=== PATIENT | female | born 1945 | race Caucasian/White ===

== ENCOUNTER 2020-08-11 06:54 | Emergency (ER) | payer MEDICARE, SELFPAY ==
[2020-08-11] VITALS (8 sets, daily range): BP systolic 125–152; BP diastolic 59–76; PULSE 102–142; RESP 18–22; TEMP 36.4–36.9; O2SAT 96–100; BMI 18.1
--- NOTE | 2020-08-11 07:07 | XRR_ITS ---
PROCEDURE INFORMATION: Exam: XR Left Shoulder Exam date and time: 08/11/2020 7:35 AM Age: 75 years old Clinical indication: Injury or trauma; Fall; Blunt trauma (contusions or hematomas); Shoulder; Left; Additional info: Shoulder pain S/P fall TECHNIQUE: Imaging protocol: XR Left shoulder. Views: 2 or more views. COMPARISON: No relevant prior studies available. FINDINGS: Bones/joints: There is a comminuted impacted transverse fracture through the left humeral neck. There also appears to be tuberosity avulsion the humeral head is not dislocated. The scapula and clavicle are unremarkable. Soft tissues: Normal. XR/XR shoulder LT min 2V* [id number] IMPRESSION: Comminuted impacted fracture of the left humeral neck.
--- NOTE | 2020-08-11 07:07 | XRR_ITS ---
PROCEDURE INFORMATION: Exam: XR Chest, 1 View Exam date and time: 08/11/2020 7:35 AM Age: 75 years old Clinical indication: Injury or trauma; Fall; Blunt trauma (contusions or hematomas); Additional info: Syncope TECHNIQUE: Imaging protocol: XR of the chest Views: 1 view. COMPARISON: No relevant prior studies available. FINDINGS: Lungs: Unremarkable. No consolidation. Pleural space: Unremarkable. No pleural effusion. No pneumothorax. Heart/Mediastinum: Unremarkable. No cardiomegaly. Bones/joints: There is a comminuted transverse fracture through the left humeral neck. XR/XR chest 1V portable [id number] IMPRESSION: 1. Left humeral neck fracture. 2. No significant cardiopulmonary abnormality.
--- NOTE | 2020-08-11 07:07 | XRR_ITS ---
PROCEDURE INFORMATION: Exam: XR Left Wrist Exam date and time: 08/11/2020 7:35 AM Age: 75 years old Clinical indication: Injury or trauma; Fall; Blunt trauma (contusions or hematomas); Wrist; Left; Additional info: Left wrist pain S/P fall TECHNIQUE: Imaging protocol: XR Left wrist. Views: 3 or more views. COMPARISON: No relevant prior studies available. FINDINGS: Bones/joints: There is a comminuted transverse fracture through the distal metaphysis of the radius the distal fragment is displaced and tilted dorsally. A nondisplaced fractures present in the ulnar there for styloid. Soft tissues: Normal. XR/XR wrist LT min 3V* [id number] IMPRESSION: 1. Comminuted impacted and angulated fracture of the distal radius. 2. Nondisplaced fracture of the ulnar styloid.
--- NOTE | 2020-08-11 07:08 | ECG_ITS ---
[facility] Test Date: 2020-08-11 Pat Name: Simran Thomas Department: Room: Gender: Female Radiologic Technologist: : 1945 Requested By: Yael Sears Order Number: [id number] Reading MD: MARIA GUADALUPE CARROLL Measurements Intervals [place] Rate: 107 P: 42 KS: 145 QRS: 37 QRSD: 73 T: 51 QT: 313 QTc: 419 Interpretive Statements SINUS TACHYCARDIA NONSPECIFIC T-WAVE ABNORMALITY ABNORMAL RHYTHM ECG No previous ECG available for comparison Electronically Signed On 08-11-2020 17:26:57 ELECTRICAL TECHNICIAN by MARIA GUADALUPE CARROLL [id number]
--- NOTE | 2020-08-11 07:09 | CTR_ITS ---
PROCEDURE INFORMATION: Exam: CT Head Without Contrast Exam date and time: 08/11/2020 7:34 AM Age: 75 years old Clinical indication: Injury or trauma; Fall; Blunt trauma (contusions or hematomas); Consciousness not specified; Injury date: This morning; Additional info: Weakness, fall TECHNIQUE: Imaging protocol: Computed tomography of the head without contrast. Radiation optimization: All CT scans at this facility use at least one of these dose optimization techniques: automated exposure control; mA and/or kV adjustment per patient size (includes targeted exams where dose is matched to clinical indication); or iterative reconstruction. COMPARISON: No relevant prior studies available. RADIATION DOSE METRICS: Total DLP (mGy-cm): 1395.28 FINDINGS: Brain: There is moderate generalized chronic atrophy. There is no intracranial hemorrhage, edema or other acute abnormality in the brain. Cerebral ventricles: Mild ventricular prominence related to chronic atrophy. Bones/joints: Unremarkable. No acute fracture. Paranasal sinuses: Visualized sinuses are unremarkable. No fluid levels. Mastoid air cells: Visualized mastoid air cells are well aerated. Soft tissues: Unremarkable. CT/CT head wo con* [id number] IMPRESSION: Moderate chronic atrophy. No acute intracranial abnormality. Radiation Dose CTDIVOL = (mGy): DLP = 1395.28 (mGy-cm)
--- NOTE | 2020-08-11 07:21 | ED_ITS ---
HPI - Trauma General: Chief Complaint: Trauma Stated Complaint: LEFT WRIST AND SHOULDER PAIN S/P FALL Time Seen by Provider: 08/11/20 07:03 Source: patient and EMS Mode of arrival: EMS Limitations: no limitations History of Present Illness: HPI narrative: 75 year old female presents to the ED due to fall she sustained this am at home, reports got up to go to the bathroom, states her legs were weak, sustaining a fall. She reports her tried to get her up, she was too weak to walk. Her spouse states she did not lose consciousness, reports did not hit her head, reports dizziness after the fall. Reports compression fracture of the lumbar spine, reports left shoulder pain, left wrist pain, spouse reports she hit the hardwood floor. MD complaint: fall, injury and pain Onset (ago): minute(s) (45) Loss of Consciousness: no Location: face Location - Extremities: Left: shoulder and wrist Severity: moderate Severity scale (1-10): 7 Context: fall Associated symptoms: Reports dizziness and weakness (BLE which led to fall); Denies abdominal pain, chest pain, chills, dental pain, diaphoresis, fever(s), headache(s), nausea or vomiting Review of Systems General: Reports: 10 or more systems reviewed and unremarkable except in HPI and below Const: Denies: fever(s), chills or diaphoresis Eyes: Denies: blurry vision or eye redness ENMT: Reports: swelling of lips/tongue (laceration to the lower lip and chin); Denies: throat pain, enlarged tonsils, dental pain or disequilibrium Card: Reports: irregular heart rhythm (per EMS, question new onset Atrial Fib); Denies: chest pain or palpitations Resp: Reports: dyspnea (chronic with ambulation due to kyphosis posture ); Denies: productive cough, non-productive cough, wheezing or chest congestion GI: Denies: abdominal pain, nausea, vomiting, heartburn or early satiety : Denies: difficulty voiding or dysuria Musc: Reports: back pain (lumbar spine, chronic), extremity pain (left shoulder, left wirst), limited range of motion (left shoulder, left wirst) and muscle weakness (BLE); Denies: neck pain Skin/Breast: Denies: rash, pruritus, changing lesions or changes in skin color Neuro: Reports: weakness in extremities (BLE) and dizziness; Denies: headache(s) or sensory changes Psych: Denies: anxiety, depression, difficulty concentrating, visual hallucinations or auditory hallucinations Tani/Lymph: Denies: easy bruising PFSH ED PFSH: Social History (Updated 08/11/20 @ 07:48 by CATRACHITA Kaba) Household members: spouse Housing: House Physical Exam Const: COMMON NORMALS: no acute distress, patient oriented x3 and alert EXAM LIMITATIONS: no altered mental status GENERAL APPEARANCE: cooperative, well kempt, frail appearing and other (in pain) NUTRITIONAL APPEARANCE: thin ORIENTATION/CONSCIOUSNESS: Yes awake, Yes oriented to person, Yes oriented to place and Yes oriented to time HENMT: COMMON NORMALS: normocephalic, atraumatic, EAC's normal, TM's normal bilaterally, Normal external nose present, Normal nasal mucous membranes and turbinates present, moist oral mucous membranes and oropharynx normal HEAD & SCALP: normocephalic and atraumatic; no Acrocyanosis present and no laceration FACE & SINUS: sinuses nontender, erythema (contusion, left lower chin) and laceration (left lower chin 1 cm); no Acrocyanosis present FACE & SINUS IMAGES: 1. lip laceration, 0.5 cm, flap, negative for through and through NOSE: Normal external nose present, Normal nasal mucous membranes and turbinates present and No nasal discharge present EXTERNAL AUDITORY CANAL: EAC's normal TYMPANIC MEMBRANE: TM's normal bilaterally TEETH & GINGIVA: Yes other (den aftab contusion, central lower, negative dental avulsion/loosening ) THROAT: uvula midline Eye: COMMON NORMALS: Equal, round and reactive pupils present and EOMs intact bilaterally GENERAL EYE: appearance normal, both eyes and all related structures SCLERA: sclerae normal PUPIL: Yes Equal, round and reactive pupils present, Yes pupil size - right Right pupil size (mm): 4 and Yes pupil size - left Left pupil size (mm): 4 Neck/C-Spine: COMMON NORMALS: full ROM and no lymphadenopathy GENERAL: Yes normal visual inspection and Yes trachea midline CERVICAL SPINE: Yes cervical ROM normal, No pain with cervical ROM, No Cervical spine tenderness, No Paracervical muscle tenderness and Yes Trapezius muscle tenderness left Lymph: LYMPHATIC: no lymphadenopathy noted Chest: COMMONS NORMALS: normal inspection of the chest and normal palpation of entire chest wall CHEST: No localized rib tenderness with anteroposterior compression Resp: COMMON NORMALS: normal respiratory effort, No retractions, No use of accessory muscles and clear to auscultation bilaterally EFFORT & INSPECTION: Yes able to speak in complete sentences, No decreased respiratory effort and No paradoxical thoraco-abdominal movements AUSCULTATION: clear to auscultation bilaterally and diminished lung sounds bilateral Cardio: COMMON NORMALS: regular rate, regular rhythm, S1 normal heart sound present, S2 normal heart sound present and Peripheral pulses 2+ throughout RATE: regular rate and tachycardic RHYTHM: regular rhythm HEART SOUNDS: S1 normal heart sound present and S2 normal heart sound present PERIPHERAL PULSES: Peripheral pulses 2+ throughout GI: COMMON NORMALS: Normal to inspection, nondistended, normoactive bowel sounds present, Soft to palpation and non-tender INSPECTION: Yes normal to inspection, No Abdominal wall edema, No abdominal distension and No central obesity AUSCULTATION: Yes normoactive bowel sounds PALPATION: Yes Soft to palpation : COMMON NORMALS: Yes no CVA tenderness BLADDER/KIDNEY EXAM: Yes no CVA tenderness Back/Pelvis: COMMON NORMALS: no CVA tenderness and thoracic and lumbar spine normal to inspection THORACIC SPINE/UPPER BACK: Yes normal to inspection LUMBAR SPINE/LOWER BACK: Yes normal to inspection and Yes lumbar spinal tenderness Lumbar spinal tenderness location: L3, L4 and L5 SACROILIAC JOIN TS: Yes SI joints normal Extremity: COMMON NORMALS: normal to inspection and capillary refill normal GENERAL: Yes normal exam except as noted LEFT UPPER EXTREMITY: Yes shoulder joint Left shoulder joint: Yes inspection (edema inferior, anterior), Yes palpation (pain with palpation), Yes ROM (limited due to pain) and Yes neurovascular exam (distally intact) and Yes wrist Left wrist: Yes inspection (obvious deformity), Yes palpation (pain with palpation), Yes ROM (limited due to pain) and Yes neurovascular exam (distally intact, movement of all digits distally intact) Neuro: COMMON NORMALS: patient oriented x3 and no focal motor deficits SENSORIUM/ORIENTATION: Yes alert, Yes oriented to person, Yes oriented to place and Yes oriented to time Psych: COMMON NORMALS: mental status grossly normal, Normal thought process present, cooperative, normal affect, speech normal and activity/motor behavior normal APPEARANCE: Yes grossly normal and Yes well kempt ATTITUDE: Yes calm ACTIVITY/MOTOR BEHAVIOR: Yes appropriate eye contact SPEECH: Yes normal speech THOUGHT PROCESS: Normal thought process present MEMORY/COGNITION: Yes memory grossly intact INSIGHT: Good insight present (Psych) JUDGEMENT: Good judgement present (Psych) Skin: COMMON NORMALS: no rashes or lesions noted and turgor normal GENERAL SKIN EXAM: no rashes or lesions noted and turgor normal Procedures Laceration Laceration 1: Site: face (left central chin) Side (If applicable): left Size (cm): 1 Description: stellate and other (contused) Depth: simple, single layer Local Anesthetic: lidocaine 1% and with epi Amount of anesthesia used (mL): 2 Pre-repair: wound explored, irrigated extensively, deep structures intact, extensive debridement and wound margins revised Skin layer closed with: nylon Size (cm): 5-0 Number of sutures: 2 Technique: simple, interrupted Laceration 2: Site: lip Side (If applicable): left Size (cm): 0.5 Description: stellate, irregular, involves jessica border and other (contused) Depth: simple, single layer Local Anesthetic: lidocaine 1% and with epi Amount of anesthesia used (mL): 0.5 Pre-repair: wound explored, irrigated extensively, deep structures intact and extensive debridement Skin layer closed with: nylon Size (cm): 5-0 Number of sutures: 1 Technique: simple, interrupted Orthopedic Splinting/Casting Injury #1: Side: left Upper Extremity Injury Location: forearm and wrist Upper Extremity Immobilizer: sugar tong splint and Calos wrap MDM - Trauma Lab Data: Labs: Lab Results 08/11/20 08/11/20 08/11/20 Range/Units 07:00 07:00 07:00 WBC 13.9 H (4.0-10.0) 10^3/ uL RBC 3.47 L (4.1-5.3) 10^6/u L Hgb 10.5 L (11.5-15.3) g/dL Hct 32.8 L (37.0-47.0) % MCV 94.5 (81-99) fL MCH 30.3 (28.0-34.0) pg MCHC 32.0 (30.0-36.0) g/dL RDW 13.3 (12.1-15.1) % Plt Count 200 (130-400) 10^3/c mm MPV 10.3 (7.4-10.4) fL Neut % (Auto) 81.9 % Lymph % (Auto) 11.6 % Mcclain % (Auto) 5.8 % Eos % (Auto) 0.1 % Baso % (Auto) 0.2 % Neut # (Auto) 11.35 H (1.8-7.7) 10^3/u L Lymph # (Auto) 1.6 (0.8-4.8) 10^3/u L Mcclain # (Auto) 0.8 (0.2-0.9) 10^3/u L Eos # (Auto) 0.0 (0.0-0.8) 10^3/u L Baso # (Auto) 0.0 (0.0-0.1) 10^3/u L Nucleated RBC % (a uto) 0 % Nucleated RBCs # 0.0 /100WBC Sodium 137 (136-145) mmol/L Potassium 3.7 (3.5-5.1) mmol/L Chloride 100 (98-107) mmol/L Carbon Dioxide 25 (22-29) mmol/L Anion Gap 15.7 (5-19) BUN 13 (8-23) mg/dL Creatinine 0.8 (0.5-0.9) mg/dL GFR Calculation Not Reportable Glucose 148 H (65-115) mg/dL Calculated Osmolal ity 287 (285-295) mOsm/k g Calcium 9.3 (8.5-10.5) mg/dL Total Bilirubin 0.4 (0.15-1.2) mg/dL AST 24 (0-32) U/L ALT 10 (0-33) U/L Alkaline Phosphata se 89 (35-105) IU/L Troponin T Baselin e 8 (0-10) ng/L Troponin T 120 Min [place] (0-10) ng/L Delta Troponin T (0-10) ABS# Total Protein 6.9 (6.6-8.7) g/dL Albumin 4.6 (3.5-5.2) g/dL Globulin 2.3 (1.3-4.6) g/dL Urine Color (Yellow) Urine Appearance (CLEAR) Urine pH (5-7) Ur Specific Gravit y (1.005-1.030) Urine Protein (Negative) Urine Glucose (UA) (Normal) Urine Ketones (Negative) Urine Blood (Negative) Urine Nitrate (Negative) Urine Bilirubin (Negative) Urine Urobilinogen (Negative) mg/dL Ur Leukocyte Darya ase (Negative) Urine RBC (0-2) /hpf Urine WBC (0-5) /hpf Ur Squamous Epith Cells (0-5) /hpf Amorphous Sediment Urine Bacteria (NONE) /hpf Urine Mucus /hpf 08/11/20 08/11/20 Range/Units 09:12 09:22 WBC (4.0-10.0) 10^3/ uL RBC (4.1-5.3) 10^6/u L Hgb (11.5-15.3) g/dL Hct (37.0-47.0) % MCV (81-99) fL MCH (28.0-34.0) pg MCHC (30.0-36.0) g/dL RDW (12.1-15.1) % Plt Count (130-400) 10^3/c mm MPV (7.4-10.4) fL Neut % (Auto) % Lymph % (Auto) % Mcclain % (Auto) % Eos % (Auto) % Baso % (Auto) % Neut # (Auto) (1.8-7.7) 10^3/u L Lymph # (Auto) (0.8-4.8) 10^3/u L Mcclain # (Auto) (0.2-0.9) 10^3/u L Eos # (Auto) (0.0-0.8) 10^3/u L Baso # (Auto) (0.0-0.1) 10^3/u L Nucleated RBC % (a uto) % Nucleated RBCs # /100WBC Sodium (136-145) mmol/L Potassium (3.5-5.1) mmol/L Chloride (98-107) mmol/L Carbon Dioxide (22-29) mmol/L Anion Gap (5-19) BUN (8-23) mg/dL Creatinine (0.5-0.9) mg/dL GFR Calculation Glucose (65-115) mg/dL Calculated Osmolal ity (285-295) mOsm/k g Calcium (8.5-10.5) mg/dL Total Bilirubin (0.15-1.2) mg/dL AST (0-32) U/L ALT (0-33) U/L Alkaline Phosphata se (35-105) IU/L Troponin T Baselin e (0-10) ng/L Troponin T 120 Min [place] 9.44 (0-10) ng/L Delta Troponin T 1.44 (0-10) ABS# Total Protein (6.6-8.7) g/dL Albumin (3.5-5.2) g/dL Globulin (1.3-4.6) g/dL Urine Color Straw (Yellow) Urine Appearance Clear (CLEAR) Urine pH 5 (5-7) Ur Specific Gravit y 1.025 (1.005-1.030) Urine Protein Neg (Negative) Urine Glucose (UA) Norm (Normal) Urine Ketones 1+ H (Negative) Urine Blood 2+ H (Negative) Urine Nitrate Negative (Negative) Urine Bilirubin Neg (Negative) Urine Urobilinogen Norm (Negative) mg/dL Ur Leukocyte Darya ase Negative (Negative) Urine RBC 0-4 H (0-2) /hpf Urine WBC 0-4 H (0-5) /hpf Ur Squamous Epith Cells Rare (0-5) /hpf Amorphous Sediment Not Reportable Urine Bacteria Trace (NONE) /hpf Urine Mucus 1+ /hpf Imaging Data^: Other CT: Radiologist's impression: [place] [address] CT Scan Report Signed Patient: Simran Thomas #: [id number] : 5Acct#:[id number] Age/Sex: 75 / FADM Date: 08/11/20 Loc: [facility]/Bed: Attending Dr: Ordering Provider/Ordering MD: Yael Dexter Date of Service: 08/11/20 Procedure(s): CT lumbar spine wo con* [id number] Accession Number(s): [id number] Report Number: [id number] PROCEDURE INFORMATION: Exam: CT Lumbar Spine Without Contrast Exam date and time: 08/11/2020 7:34 AM Age: 75 years old Clinical indication: Injury or trauma; Fall; Blunt trauma (contusions or hematomas); Injury date: This morning; Additional info: Back pain, leg weakness TECHNIQUE: Imaging protocol: Computed tomography images of the lumbar spine without contrast. Radiation optimization: All CT scans at this facility use at least one of these dose optimization techniques: automated exposure control; mA and/or kV adjustment per patient size (includes targeted exams where dose is matched to clinical indication); or iterative reconstruction. COMPARISON: CR XR lumbar spine min 4V [id number] 02/03/2020 10:42 AM RADIATION DOSE METRICS: Total DLP (mGy-cm): 1466.39 FINDINGS: Vertebrae: There is a prominent compression fracture of T12 with marked loss of its vertebral height. There appears to be sclerotic with so shaded degenerative changes. Most likely this is an old fracture. There is narrowing of the adjacent discs with vacuum phenomenon. There is mild spinal stenosis at the upper margin of the T12 vertebral body due to mild retropulsion. There is compression fracture of the L3 vertebral body. This is old and was present on radiographs from 02/03/2020. Degenerative changes are present in the facet joints. There is no other significant spinal stenosis or disc protrusion.. Discs/Spinal canal/Neural foramina: No significant disc protrusion. No significant neural foraminal narrowing. Soft tissues: Unremarkable. CT/CT lumbar spine wo con* [id number] IMPRESSION: 1. Prominent compression fracture of T12 which appears to be old. There is mild spinal stenosis at the level of the fracture. 2. Old compression fracture of L3. 3. 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 4. No other significant spinal stenosis or neural foraminal narrowing. Radiation Dose CTDIVOL = (mGy): DLP = 1466.39 (mGy-cm) Dictated By:Babatunde Dyer Signed By:Benjy Dyer Date/Time:08/11/20 0759 DD/ 0758 CT Head: Radiologist's impression: [address] [address] [address] Scan Report Signed Patient: Simran Thomas Unit #: [id number] : 1945 Age/Sex: 75 / F ADM Date: 08/11/20 Loc: ER Room/Bed: Attending Dr: Ordering Provider/Ordering MD: Yael Dexter Date of Service: 08/11/20 Procedure(s): CT head wo con* [id number] Accession Number(s): [id number] Report Number: [id number] PROCEDURE INFORMATION: Exam: CT Head Without Contrast Exam date and time: 08/11/2020 7:34 AM Age: 75 years old Clinical indication: Injury or trauma; Fall; Blunt trauma (contusions or hematomas); Consciousness not specified; Injury date: This morning; Additional info: Weakness, fall TECHNIQUE: Imaging protocol: Computed tomography of the head without contrast. Radiation optimization: All CT scans at this facility use at least one of these dose optimization techniques: automated exposure control; mA and/or kV adjustment per patient size (includes targeted exams where dose is matched to clinical indication); or iterative reconstruction. COMPARISON: No relevant prior studies available. RADIATION DOSE METRICS: Total DLP (mGy-cm): 1395.28 FINDINGS: Brain: There is moderate generalized chronic atrophy. There is no intracranial hemorrhage, edema or other acute abnormality in the brain. Cerebral ventricles: Mild ventricular prominence related to chronic atrophy. Bones/joints: Unremarkable. No acute fracture. Paranasal sinuses: Visualized sinuses are unremarkable. No fluid levels. Mastoid air cells: Visualized mastoid air cells are well aerated. Soft tissues: Unremarkable. CT/CT head wo con* [id number] IMPRESSION: Moderate chronic atrophy. No acute intracranial abnormality. Radiation Dose CTDIVOL = (mGy): DLP = 1395.28 (mGy-cm) Dictated By: Babatunde Dyer CXR: Radiologist's impression: [address] [address] XRay Report Signed Patient: Simran Thomas Unit #: [id number] : 1945 Age/Sex: 75 / F ADM Date: 08/11/20 Loc: ER Room/Bed: Attending Dr: Ordering Provider/Ordering MD: Yael Dexter Date of Service: 08/11/20 Procedure(s): XR chest 1V portable [id number] Accession Number(s): [id number] Report Number: [id number] PROCEDURE INFORMATION: Exam: XR Chest, 1 View Exam date and time: 08/11/2020 7:35 AM Age: 75 years old Clinical indication: Injury or trauma; Fall; Blunt trauma (contusions or hematomas); Additional info: Syncope TECHNIQUE: Imaging protocol: XR of the chest Views: 1 view. COMPARISON: No relevant prior studies available. FINDINGS: Lungs: Unremarkable. No consolidation. Pleural space: Unremarkable. No pleural effusion. No pneumothorax. Heart/Mediastinum: Unremarkable. No cardiomegaly. Bones/joints: There is a comminuted transverse fracture through the left humeral neck. XR/XR chest 1V portable [id number] IMPRESSION: 1. Left humeral neck fracture. 2. No significant cardiopulmonary abnormality. Dictated By: Babatunde Dyer Signed By: Babatunde Dyer Signed Date/Time: 08/11/20822 DD/ 0 Xray Ortho: Radiologist's impression: [address] [address] XRay Report Signed Patient: Simran Thomas Unit #: [id number] : 1945 0 Age/Sex: 75 / F ADM Date: 08/11/20 Loc: ER Room/Bed: Attending Dr: Ordering Provider/Ordering MD: Yael Dexter Date of Service: 08/11/20 Procedure(s): XR wrist LT min 3V* [id number] Accession Number(s): [id number] Report Number: [id number] PROCEDURE INFORMATION: Exam: XR Left Wrist Exam date and time: 08/11/2020 7:35 AM Age: 75 years old Clinical indication: Injury or trauma; Fall; Blunt trauma (contusions or hematomas); Wrist; Left; Additional info: Left wrist pain S/P fall TECHNIQUE: Imaging protocol: XR Left wrist. Views: 3 or more views. COMPARISON: No relevant prior studies available. FINDINGS: Bones/joints: There is a comminuted transverse fracture through the distal metaphysis of the radius the distal fragment is displaced and tilted dorsally. A nondisplaced fractures present in the ulnar there for styloid. Soft tissues: Normal. XR/XR wrist LT min 3V* [id number] IMPRESSION: 1. Comminuted impacted and angulated fracture of the distal radius. 2. Nondisplaced fracture of the ulnar styloid. Dictated By: Babatunde Dyer Signed By: Babatunde Dyer Signed Date/Time: 08/11/20824 DD/ 2 Other Imaging: Radiologist's impression: [address] [place] [address] XRay Report Signed Patient: Simran Thomas Unit #: [id number] : 1945 Age/Sex: 75 / F ADM Date: 08/11/20 Loc: ER Room/Bed: Attending Dr: Ordering Provider/Ordering MD: Yael Dexter Date of Service: 08/11/20 Procedure(s): XR shoulder LT min 2V* [id number] Accession Number(s): [id number] Report Number: [id number] PROCEDURE INFORMATION: Exam: XR Left Shoulder Exam date and time: 08/11/2020 7:35 AM Age: 75 years old Clinical indication: Injury or trauma; Fall; Blunt trauma (contusions or hematomas); Shoulder; Left; Additional info: Shoulder pain S/P fall TECHNIQUE: Imaging protocol: XR Left shoulder. Views: 2 or more views. COMPARISON: No relevant prior studies available. FINDINGS: Bones/joints: There is a comminuted impacted transverse fracture through the left humeral neck. There also appears to be tuberosity avulsion the humeral head is not dislocated. The scapula and clavicle are unremarkable. Soft tissues: Normal. XR/XR shoulder LT min 2V* [id number] IMPRESSION: Comminuted impacted fracture of the left humeral neck. Dictated By: Babatunde Dyer Signed By: Babatunde Dyer Signed Date/Time: 08/11/20823 DD/ 1 EKG Data^: EKG 1: EKG interpretation date: 08/11/20 EKG interpretation time: 07:25 Other EKG Comments: Ventricular rate 107, sinus tachycardia, nonspecific T wave abnormality, Discharge Plan Discharge Patient Disposition: Home Clinical Impression: Fall against object, Tachycardia Left humeral fracture Qualifiers: Encounter type: initial encounter Humerus Location: surgical neck Fracture type: closed Fracture morphology: unspecified fracture morphology Fracture alignment: displaced Qualified Code(s): S42.212A - Unspecified displaced fracture of surgical neck of left humerus, initial encounter for closed fracture Left wrist fracture Qualifiers: Encounter type: initial encounter Fracture type: closed Qualified Code(s): S62.102A - Fracture of unspecified carpal bone, left wrist, initial encounter for closed fracture Contusion of face Qualifiers: Encounter type: initial encounter Qualified Code(s): S00.83XA - Contusion of other part of head, initial encounter Condition: Stable Prescriptions: New Toprol XL 25 mg tablet extended release 24 hr 12.5 mg PO DAILY Qty: 20 RF: 0 hydrocodone-acetaminophen 5-325 mg tablet 1 tab PO Q4H PRN (Reason: pain) Qty: 10 RF: 0 Discharge Orders: Discharge ED (Routine); Ordered 08/11/20 Ordered By: Yael Dexter Referrals: Antonio Ma DO [Primary Care Provider] - Discharge Diet: Usual diet Discharge Activity: Limit activity as instructed Patient Instructions: Fractures - Humerus, Holter Monitoring (ED), Suture Care (ED), Laceration (ED), Wrist Fracture in Adults (ED), Splint Care (ED), Mouth Care (ED) Activity Restrictions/Additional Instructions: No use of the left upper extremity Return to the emergency department if you develop numbness tingling or inability to feel the fingers of your left hand or if increased pain of the left upper extremity occurs Hydrocodone can cause nausea/constipation, make sure to eat with medication to avoid stomach upset and may need [id number] stool softener such as Colace or laxative for constipation May take [id number] Tylenol as needed for pain, do not exceed 3000 g in a 24-hour period Follow-up with orthopedic surgery, director social will assist with scheduling an appointment Sutures out in 7 days. Swish and spit with warm water several times daily, ramakrishna cially after eating to help with healing of the mouth May apply Vaseline to sutures if dryness occurs Monitor for signs and symptoms of infection such as redness, swelling or drainage, if occurs follow-up with your primary care provider Outpatient stress test and 72-hour Holter monitor has been placed, hospital will contact you with appointment time for testing. Monitor your blood pressure daily and record, follow-up with your primary care physician in 5 to 7 days due to tachycardia, also known as fast heart rate Coding Level of Care Code ED Community Liaison Officer for Chg Fwd Exam Comprehensive
[2020-08-11 07:25] LABS: Basophils % 0.2 %; Eosinophils % 0.1 %; Hematocrit 32.8 % (37.0-47.0); Hemoglobin 10.5 g/dL (11.5-15.3); Lymphocytes # 1.6 10^3/uL (0.8-4.8); Lymphocytes % 11.6 %; Mean Corpuscular Hemoglobin 30.3 pg (28.0-34.0); Mean Corpuscular Volume 94.5 fL (81-99); Mean Platelet Volume 10.3 fL (7.4-10.4); Monocytes # 0.8 10^3/uL (0.2-0.9); Monocytes % 5.8 %; Neutrophils # 11.35 10^3/uL (1.8-7.7); Neutrophils % 81.9 %; Nucleated Red Blood Cells % 0 %; Platelet Count 200 10^3/cmm (130-400); Red Blood Count 3.47 10^6/uL (4.1-5.3); Red Cell Distribution Width 13.3 % (12.1-15.1); White Blood Count 13.9 10^3/uL (4.0-10.0)
[2020-08-11 07:55] LABS: Alanine Aminotransferase 10 U/L (0-33); Albumin Level 4.6 g/dL (3.5-5.2); Alkaline Phosphatase 89 IU/L (35-105); Aspartate Amino Transferase 24 U/L (0-32); Blood Urea Nitrogen 13 mg/dL (8-23); Calcium 9.3 mg/dL (8.5-10.5); Carbon Dioxide 25 mmol/L (22-29); Chloride 100 mmol/L (98-107); Creatinine Clr Calc Pharmacy 39.1575; Globulin 2.3 g/dL (1.3-4.6); Glucose 148 mg/dL (65-115); Osmolality Calculated 287 mOsm/kg (285-295); Sodium 137 mmol/L (136-145); Total Bilirubin 0.4 mg/dL (0.15-1.2); Total Protein 6.9 g/dL (6.6-8.7)
[2020-08-11 07:58] LABS: Troponin(5th) Baseline 8 ng/L (0-10)
[2020-08-11] MEDS: sodium chloride 0.9% 500 ML 999 ML IV ×2 (07:58→11:26)
[2020-08-11 08:01] LABS: Anion Gap 15.7 (5-19)
[2020-08-11 08:02] LABS: Potassium 3.7 mmol/L (3.5-5.1)
[2020-08-11 09:25] LABS: Add Urine Microscopic? YES; Bilirubin Urine Neg (Negative); Blood Urine 2+ (Negative); Glucose Urine UA Norm (Normal); Ketones Urine 1+ (Negative); Leukocyte Esterase Urine Negative (Negative); Nitrate Urine Negative (Negative); Protein Urine Neg (Negative); Specific Gravity, Urine 1.025 (1.005-1.030); Urine Appearance Clear (CLEAR); Urine Color Straw (Yellow); Urobilinogen Urine Norm (Negative); pH Urine 5 (5-7)
[2020-08-11 10:02] LABS: Add Urine Culture? No; Bacteria Urine TRACE /hpf; Mucus Urine 1+ /hpf; RBC Urine 0-4 /hpf (0-2); Squamous Epithelial Cell Urine RARE /hpf (0-5); WBC Urine 0-4 /hpf (0-5)
[2020-08-11 10:30] LABS: Troponin 5 2HR 9.44 ng/L (0-10); Troponin 5 2HR Delta 1.44 ABS# (0-10)
[2020-08-11] MEDS: HYDROcodone-acetaminophen 5-325 mg Tablet 1 TAB PO (10:56)
[2020-08-11] MEDS: metoprolol succinate ER (24 HR) 25 mg Tablet 12.5 MG PO (11:24)
--- NOTE | 2020-08-14 10:20 | DCPLANNER ---
manager industrial had message to schedule a follow up appointment for patient with ortho. manager industrial called the ortho clinic, spoke with Carolina, gave clinic patients information. manager industrial was told that patients information would be printed and reviewed. Clinic will call patient with appointment information.
--- NOTE | 2020-08-15 11:05 | DCPLANNER ---
clinical trial manager also was asked to schedule an outpatient stress test and a 72 hour holter monitor. clinical trial manager faxed order to centralized scheduling for the stress test and to heart care for a holter monitor. Clinic and centralized scheduling will call patient with appointment information.
--- NOTE | 2020-08-15 13:26 | DCPLANNER ---
Patient has a follow up appointment scheduled for Saturday, August 15, [address] at 3:[address] Bass. Clinic will call patient with appointment information.
--- NOTE | 2020-08-17 15:19 | DCPLANNER ---
Patient had a follow up appointment scheduled for 08.15.20 at ortho - patient did attend appointment.
--- NOTE | 2020-09-04 11:26 | DCPLANNER ---
Patient had a follow up appointment scheduled for 08.29.20 with [facility] for a halter monitor - patient did attend appointment.
--- NOTE | 2020-09-07 11:22 | DCPLANNER ---
Patient had a stress test scheduled, when centralized scheduling called to schedule the stress test, patient stated that she did not want to have stress test scheduled at this time, it was cancelled.
--- NOTE | 2020-09-17 11:59 | DCPLANNER ---
marketing effectiveness manager had message to schedule a follow up appointment for patient with cardiology. marketing effectiveness manager called [facility], spoke with Svetlana, a follow up appointment is scheduled for Saturday, September 26, [address] at [address] Vazquez. marketing effectiveness manager called patient with appointment information, patient stated that she would attend appointment.
--- NOTE | 2020-09-28 14:46 | DCPLANNER ---
Patient had a follow up appointment scheduled for 09.26.20 with [facility] - patient did attend appointment.
== END 2020-08-11 11:49 | disposition home or self-care (01) ==
PROVIDERS: Emergency Provider Nurse Practitioner Family; PCP Internal Medicine
DX: S42.212A Unspecified displaced fracture of surgical neck of left humerus, initial encounter for closed fracture (principal); S00.83XA Contusion of other part of head, initial encounter; R00.0 Tachycardia, unspecified; S52.592A Other fractures of lower end of left radius, initial encounter for closed fracture; S52.615A Nondisplaced fracture of left ulna styloid process, initial encounter for closed fracture; S01.81XA Laceration without foreign body of other part of head, initial encounter; S01.511A Laceration without foreign body of lip, initial encounter; W18.30XA Fall on same level, unspecified, initial encounter
CPT/HCPCS: 12011; 12345; 70450; 71045; 72131; 73030; 73110; 80053; 81001; 84484; 85025; 93005; 96374; 99283; 99284; A4590; J0131; J7040

== ENCOUNTER 2020-08-15 16:19 | Outpatient (CLI) | payer MEDICARE, BC, SELFPAY | END 2020-08-15 16:20 | disposition home or self-care (01) | LOC: SPT 16:19 | PROVIDERS: PCP Internal Medicine; Visit Provider Orthopaedic Surgery | DX: Z46.89 Encounter for fitting and adjustment of other specified devices (principal); S62.102D Fracture of unspecified carpal bone, left wrist, subsequent encounter for fracture with routine healing; X58.XXXD Exposure to other specified factors, subsequent encounter; Z01.812 Encounter for preprocedural laboratory examination; Z20.828 Contact with and (suspected) exposure to other viral communicable diseases; Z11.59 Encounter for screening for other viral diseases | CPT/HCPCS: 87635; 97760; L3908 ==

== ENCOUNTER 2020-08-16 12:41 | Day surgery (SDC) | payer MEDICARE, BC, SELFPAY ==
[2020-08-15 17:25] VITALS: BMI 17.9
--- NOTE | 2020-08-16 | XR_ITS ---
WS: [id number] XR wrist LT 2V [id number] REASON FOR EXAM: OR PIC FINDINGS: Plate and screw fixation left distal radial fracture. Surgical appliance and bony fragments are in pr oper position and alignment. Ulnar styloid fracture. XR/XR wrist LT 2V [id number] IMPRESSION: Distal left radial fracture with internal fixation as above.
--- NOTE | 2020-08-16 | SCC_ITS ---
Procedure Done: Open reduction and internal fixation left distal radius 32.1 seconds of fluoroscopic guidance, for a cumulative dose of 0.52 mGy, was provided to Dr. Bass by the radiology department. C-arm images of the LEFT wrist were saved for the patient's permanent record. [facility]
--- NOTE | 2020-08-16 12:30 | ANES.PREANE2 ---
Pre-Anesthetic Assessment Pre-Anesthetic Assessment: Height/Weight: Height 1.5 m Weight 40.37 kg Preop Diagnosis: Radial fracture Proposed Procedure: Operation Date: 08/16/20 14:00 Proposed Procedures p ORIF Distal Radius 14743 S52.502A(Left) - Shane Bass MD Familial anesthetic complications: None Was Beta Cam taken within 24 hours: Yes Last intake: NPO > 8 hrs Social: Social History: No alcohol and No tobacco Exam: Pre-Anes Outpt Exam: alert, oriented x 3, clear to auscultation bilaterally and regular rate & rhythm Airway: Cervical ROM: WNL MP: 2 Dentition: Partials (bottom) and Other (top plate) Pulmonary: Comments: pulmonary fibrosis, will wear 2 L NC if she gets winded wtih activity CV/HEM: CV/HEM: CHF GI: GI: GERD Metabolic: Metabolic: Hyperlipidemia and Thyroid Neuropsych: Neuropsych: 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
[2020-08-16 13:04] VITALS: BP 144/85; PULSE 111; RESP 18; TEMP 36.8; O2SAT 96
--- NOTE | 2020-08-16 13:39 | ANES.PREANE2 ---
Pre-Anesthetic Assessment Pre-Anesthetic Assessment: Height/Weight: Height 1.5 m Weight 40.37 kg Temp Pulse Resp BP Pulse Ox 98.2 F 111 H 18 144/85 96 08/16/20 13:04 08/16/20 13:04 08/16/20 13:04 08/16/20 13:04 08/16/20 13:04 Preop Diagnosis: Left distal radius fracture Proposed Procedure: Operation Date: 08/16/20 14:00 Proposed Procedures p ORIF Distal Radius 78570 S52.502A(Left) - Shane Bass MD Familial anesthetic complications: None Was Beta Cam taken within 24 hours: Yes Last intake: Intake Last Liquid Date 08/16/20 Last Liquid Time 12:00 Last Solid Date 08/15/20 Last Solid Time 23:00 Social: Social History: No alcohol and No tobacco Exam: Pre-Anes Outpt Exam: alert, oriented x 3, clear to auscultation bilaterally and regular rate & rhythm Airway: Cervical ROM: WNL MP: 2 Dentition: False Pulmonary: Comments: sinus drainage Metabolic: Metabolic: Hyperlipidemia Anesthetic Plan: ASA status: 2 Anesthesia: General and Regional (specify below) Risk of > 500 ml blood loss (7ml/kg in children): No PFSH Anesthesia PFSH: Social History Household members: spouse Housing: House Data Anesthesia Cardiac Studies: No Data to Display
[2020-08-16] MEDS: sodium chloride 0.9% 1,000 ML 30 ML IV (13:40)
--- NOTE | 2020-08-16 13:58 | ANES.PROC ---
Anesthesia Procedures Procedure/Date: 08/16/20 Nerve Block ^: Nerve Block 1: Main Anesthesia: general anesthesia Time Out Performed: Yes Consent: requested by attending/covering physician, from patient, risks and benefits reviewed and patient agrees to proceed Nerve block location: supraclavicular (L) Anesthesia monitors applied: pulse oximetry, EKG, BP cuff and oxygen Anesthetic Used: ropivicaine 0.5% and with decadron (4) Amount of anesthesia used (mL): 30 Ultrasound used to: recognize landmarks and visualize and ID brachial plexus Nerve Stimulator Used?: No Interscalene/Femoral BLK: 4 stimuplex 21 g needle used for position and inplane approach, visualize local anesthetic spread and no vascular puncture identified Injection: neg aspiration of heme Patient Tolerated Procedure: well Complications: none
--- NOTE | 2020-08-16 14:26 | W.PM.OPSUD ---
Surgery/Procedure H&P Update DATE OF PROCEDURE: August 16, 2020 DATE H&P PERFORMED: 08/15/20 PREOP DIAGNOSIS: Left distal radius fracture PLANNED PROCEDURE: Operation Date: 08/16/20 14:00 Proposed Procedures p ORIF Distal Radius 35926 S52.502A(Left) - Shane Bass MD
--- NOTE | 2020-08-16 15:39 | PM.OP ---
Operative Report Date of procedure: August 16, 2020 Pre-op Diagnosis: Left distal radius fracture Post-op diagnosis: same Post-op Findings: Same Procedure Done: Open reduction and internal fixation left distal radius Implants: [employer] Variax narrow 4-hole left distal radius plate Pathology: none sent Surgeon: Shane Bass Anesthesia: General Estimated blood loss (mL): 20 Tourniquet time (min): 21 Condition: stable Disposition: PACU Procedure: Initial attempts were made at closed reduction however a satisfactory stable reduction could not be obtained. A decision was made to proceed with open reduction internal fixation.A 5 cm long incision was made along over the flexor carpi radialis tendon. Dissection was carried down through the tendon sheath. Dissection was carried down bluntly to the pronator quadratus. The pronator quadratus was elevated off of the distal radius leaving a cuff for later repair. Closed reduction was accomplished of the distal radius. A [employer] Variax narrow plate was applied. It was fixed distally with 3 locking screws locking screws and proximally with 3 bicortical screws. Intraoperative imaging showed excellent position of the hardware. The wound was irrigated with saline. The pronator quadratus was reapproximated with 2-0 Vicryl. Subcutaneous tissues were closed with 2-0 Vicryl. The skin was closed with skin robina. Sterile dressings were applied. The patient was taken to outpatient surgery in stable condition.
[2020-08-16 15:42] VITALS: BP 128/69; PULSE 97; RESP 16; TEMP 36.4; O2SAT 97
--- NOTE | 2020-08-16 16:03 | ANE.PACU2 ---
Inpatient post-anesthesia follow up: Airway intact: Yes Vital signs: Temperature 97.6 F Pulse Rate 97 Respiratory Rate 16 Blood Pressure 128/69 Pulse Oximetry 97 Oxygen Delivery Me thod Nasal Cannula Oxygen Flow Rate 2 Fraction of Inspir ed Oxygen Hydration adequate: Yes Nausea and vomiting: No Pain level: 1 Mental status: Baseline
[2020-08-16 16:06] VITALS: BP 142/77; PULSE 88; RESP 18; O2SAT 98
== END 2020-08-16 16:15 | disposition home or self-care (01) ==
PROVIDERS: PCP Internal Medicine; Visit Provider Orthopaedic Surgery
PROC: (CPT 25607; principal; 2020-08-16 14:00)
DX: S52.502A Unspecified fracture of the lower end of left radius, initial encounter for closed fracture (principal); X58.XXXA Exposure to other specified factors, initial encounter; E78.5 Hyperlipidemia, unspecified
CPT/HCPCS: 25607; 12345; 64415; 73100; 76000; 76942; C1713; J0690; J1100; J1580; J2704; J2795; J7030

== ENCOUNTER → 2020-08-29 13:59 | Outpatient (BNVA) | payer MEDICARE, SELFPAY | PROVIDERS: PCP Internal Medicine; Visit Provider Orthopaedic Surgery | DX: Z47.89 Encounter for other orthopedic aftercare (principal); S62.102D Fracture of unspecified carpal bone, left wrist, subsequent encounter for fracture with routine healing; S42.202D Unspecified fracture of upper end of left humerus, subsequent encounter for fracture with routine healing; W18.30XD Fall on same level, unspecified, subsequent encounter | CPT/HCPCS: 73030 ==

== ENCOUNTER 2020-09-06 11:30 | Outpatient (RCR) | payer MEDICARE, SELFPAY | END 2020-09-06 23:59 | disposition home or self-care (01) | LOC: SPT 11:30 | PROVIDERS: PCP Internal Medicine; Referring Provider Orthopaedic Surgery; Visit Provider Orthopaedic Surgery | DX: S42.202D Unspecified fracture of upper end of left humerus, subsequent encounter for fracture with routine healing (principal); X58.XXXD Exposure to other specified factors, subsequent encounter | CPT/HCPCS: 97161 ==

== ENCOUNTER 2020-09-07 06:00 | Outpatient (RCR) | payer BC, SELFPAY | END 2020-10-07 23:59 | disposition home or self-care (01) | LOC: SPT 06:00 | PROVIDERS: PCP Internal Medicine; Referring Provider Orthopaedic Surgery; Visit Provider Orthopaedic Surgery | DX: S42.202D Unspecified fracture of upper end of left humerus, subsequent encounter for fracture with routine healing (principal); X58.XXXD Exposure to other specified factors, subsequent encounter | CPT/HCPCS: 97110; 97140 ==

== ENCOUNTER → 2020-09-26 14:54 | Outpatient (BNVA) | payer MEDICARE, SELFPAY | PROVIDERS: PCP Internal Medicine; Visit Provider Orthopaedic Surgery | DX: S42.212A Unspecified displaced fracture of surgical neck of left humerus, initial encounter for closed fracture (principal); S42.202A Unspecified fracture of upper end of left humerus, initial encounter for closed fracture; S62.102A Fracture of unspecified carpal bone, left wrist, initial encounter for closed fracture; Z48.89 Encounter for other specified surgical aftercare; X58.XXXA Exposure to other specified factors, initial encounter | CPT/HCPCS: 73030; 73110 ==

== ENCOUNTER → 2020-11-07 11:55 | Outpatient (BNVA) | payer MEDICARE, SELFPAY | PROVIDERS: PCP Internal Medicine; Visit Provider Orthopaedic Surgery | DX: S42.202D Unspecified fracture of upper end of left humerus, subsequent encounter for fracture with routine healing (principal); Z98.890 Other specified postprocedural states; W18.30XD Fall on same level, unspecified, subsequent encounter; Z48.89 Encounter for other specified surgical aftercare | CPT/HCPCS: 73030 ==